=== PATIENT | female | born 1995 | race Caucasian/White ===

== ENCOUNTER 2021-10-12 17:35 | Emergency (ER) | payer SELFPAY ==
[~2021-10-12] VITALS: Ht 165.1 cm; Wt 65.0 kg
[2021-10-12 17:43] VITALS: BP 114/70
== END 2021-10-12 20:08 | disposition left against medical advice (07) ==
LOC: ER 17:35
DX: R11.10 Vomiting, unspecified (principal); Z53.21 Procedure and treatment not carried out due to patient leaving prior to being seen by health care provider
CPT/HCPCS: 99283